=== PATIENT | male | born 1960 | race Caucasian/White ===

== ENCOUNTER 2016-11-26 16:20 | Emergency (ER) | payer OTHER ==
--- NOTE | 2016-11-26 19:45 | ED Physician Chart ---
Chief Complaint/HPI - Patient Information Date Seen:: 11/26/16 Time Seen:: 19:00 Chief Complaint:: FALL History of Present Illness:: THIS IS A 55 YO MALE WHO WAS SENT HERE FOR A CT SCAN OF THE HEAD BECAUSE OF A FALL EARLIER TODAY. THE PATIENT DENIES HITTING HIS HEAD OR FACE. HE DENIES LOC , CHEST PAIN, RIB PAIN, AND EXTREMITY PAIN. Allergies:: Allergies Allergy/AdvReac Type Severity Reaction Status Date / Time No Known Allergies Allergy Verified 11/26/16 16:36 Vitals:: Vital Signs - 8 hr 11/26/16 16:36 Temp 97.0 F HR 72 RR 17 BP 125/84 O2 Sat % 96 Historian:: Patient, Medical Records Review:: Nurse's Note Reviewed Review of Systems - Review of Systems General/Constitutional: No fever, No chills, No weight loss, No weakness, No diaphoresis, No edema, No loss of appetite Skin: No skin lesions, No rash, No bruising Head: No headache, No light-headedness Eyes: No loss of vision, No pain, No diplopia ENT: No earache, No nasal drainage, No sore throat, No tinnitus Neck: No neck pain, No swelling, No thyromegaly, No stiffness, No mass noted Cardio Vascular: No chest pain, No palpitations, No PND, No orthopnea, No edema Pulmonary: No SOB, No cough, No sputum, No wheezing GI: No nausea, No vomiting, No diarrhea, No pain, No melena, No hematochezia, No constipation, No hematemesis G/U: No dysuria, No frequency, No hematuria Musculoskeletal: No bone or joint pain, No back pain, No muscle pain Endocrine: No polyuria, No polydipsia Psychiatric: No prior psych history, No depression, No anxiety, No suicidal ideation Hematopoietic: No bruising, No lymphadenopathy Allergic/Immuno: No urticaria, No angioedema Neurological: No syncope, No focal symptoms, No weakness, No paresthesia, No headache, No seizure, No dizziness, No confusion, No vertigo Other: NO OVIOUS INJURIES Past Medical History - Past Medical History Obtainable: Yes Past Medical History: HTN, CAD, CVA/TIA Family History: Heart disease, Diabetes Melitus Social History: Non Smoker, No Alcohol, No Drug Use, Care Facility Surgical History: PEG/GTube Family Medical History - Family Member Mother History Unknown: Yes Physical Exam - Physical Examination General/Constitutional: Awake, Well-developed, well-nourished, Alert, No distress, GCS 15, Non-toxic appearing, Ambulatory Head: Atraumatic Other Head comments:: on examination of the head, no finding consistent with trauma. There were no swollen areas of the head and face. There are no open wound noted. Eyes: Lids, conjuctiva normal, PERRL, EOMI Skin: Nl inspection, No rash, No skin lesions, No ecchymosis, Well hydrated, No lymphadenopathy ENMT: External ears, nose nl, Nasal exam nl, Lips, teeth, gums nl Neck: Nontender, Full ROM w/o pain, No JVD, No nuchal rigidity, No bruit, No mass, No stridor Respiratory: Nl effort/Exclusion, Clear to Auscultation, No Wheeze/Rhonchi/Rales Cardio Vascular: RRR, No murmur, gallop, rubs, NL S1 S2 GI: No tenderness/rebounding/guarding, No organomegaly, No hernia, Normal BS's, Nondistended, No mass/bruits, No McBurney tenderness : No CVA tenderness Extremities: No tenderness or effusion, Full ROM, normal strength in all extremities, No edema, Normal digits & nails Neuro/Psych: Alert/oriented, DTR's symmetric, Normal sensory exam, Normal motor strength, Judgement/insight normal, Mood normal, Normal gait, No focal deficits Misc: normal gait, Normal back, No paraspinal tenderness Labs/Radiology/EKG Results - Lab Results Results: Laboratory Results - last 24 hr 11/26/16 11/26/16 11/26/16 20:11 20:11 20:11 WBC 8.0 RBC 4.65 Hgb 14.0 Hct 41.8 MCV 89.8 MCH 30.0 MCHC Differential 33.4 RDW 11.9 Plt Count 192 MPV 10.3 Neutrophils % 64.9 Lymphocytes % 22.2 Monocytes % 7.4 Eosinophils % 2.0 Basophils % 3.5 H Sodium 151 H Potassium 3.4 L Chloride 113 H Carbon Dioxide 32.1 H Anion Gap 9.3 BUN 33 H Creatinine 0.8 Est GFR ( Amer) > 60.0 Est GFR (Non-Af Amer) > 60.0 BUN/Creatinine Ratio 41.3 Glucose 99 Calcium 9.7 Total Bilirubin 0.8 AST 58 H ALT 119 H Alkaline Phosphatase 100 Troponin I < 0.01 L Total Protein 7.1 Albumin 3.4 L Globulin 3.7 Albumin/Globulin Ratio 0.9 L - Radiology Results Results: the patient refused x-rays and ct scan of the head. ED Septic Shock - . Is Septic Shock (SBP<90, OR Lactate>4 mmol\L) present?: No - <6hrs of presentation: Vital Signs: Vital Signs - 8 hr 11/26/16 16:36 Temp 97.0 F HR 72 RR 17 BP 125/84 O2 Sat % 96 ED Discharge Plan - Patient Disposition Admit/Discharge/Transfer: Social Insurance [facility]
[2016-11-26 20:23] LABS: % BASOPHILS 3.5 % (0.0-2.0); % LYMPHOCYTES 22.2 % (20.0-50.0); % MONOCYTES 7.4 % (2.0-10.0); % NEUTROPHILS 64.9 % (40.0-80.0); HEMATOCRIT 41.8 % (39.0-49.0); MEAN CELL VOLUME 89.8 fl (80-99); MEAN CORPUSCULAR HGB CONC 33.4 pg (28.0-36.0); MEAN PLATELET VOLUME 10.3 fl; NEUTROPHILE ABSOLUTE 5.1 Th/cmm (1.8-8.0); PLATELET COUNT 192 Th/cmm (150-400); RED BLOOD COUNT 4.65 Mil/cmm (4.30-5.70); RED CELL DISTRIBUTION WIDTH 11.9 % (11.5-20.0)
[2016-11-26 20:45] LABS: ALB/GLOB RATIO 0.9 (1.0-1.8); ALKALINE PHOSPHATASE 100 U/L (34-104); ANION GAP 9.3 (7.0-16.0); BILIRUBIN,TOTAL 0.8 mg/dL (0.3-1.0); BUN - UREA NITROGEN 33 mg/dL (7-25); BUN/CREATININE RATIO 41.3; CALCIUM SERUM 9.7 mg/dL (8.6-10.3); CARBON DIOXIDE 32.1 mEq/L (21.0-31.0); CHLORIDE 113 mEq/L (98-107); CREATININE - SERUM 0.8 mg/dL (0.7-1.3); GLUCOSE 99 mg/dL (70-105); POTASSIUM SERUM 3.4 mEq/L (3.5-5.1); SGOT 58 U/L (13-39); SGPT/ALT 119 U/L (7-52); SODIUM SERUM 151 mEq/L (136-145)
[2016-11-26 22:11] LABS: URINE COLOR AMBER; URINE GLUCOSE (UA) NEGATIVE (NEGATIVE)
[2016-11-26 22:12] LABS: URINE BILIRUBIN SMALL (NEGATIVE); URINE BLOOD TRACE (NEGATIVE); URINE KETONE NEGATIVE (NEGATIVE); URINE PROTEIN 30 mg/dL (NEGATIVE); URINE UROBILINOGEN >=8.0 E.U./dL (0.2 - 1.0)
[2016-11-26 22:13] LABS: URINE BACTERIA NONE SEEN /hpf (NONE SEEN); URINE EPITHELIAL CELLS NONE SEEN /lpf (FEW); URINE RBC NONE SEEN /hpf (0-5); URINE WBC NONE SEEN /hpf (0-5)
== END 2016-11-26 23:33 ==
LOC: ER 16:20
DX: S09.90XA Unspecified injury of head, initial encounter (principal); I10 Essential (primary) hypertension; I25.10 Atherosclerotic heart disease of native coronary artery without angina pectoris; Z86.73 Personal history of transient ischemic attack (TIA), and cerebral infarction without residual deficits; Z93.1 Gastrostomy status; W19.XXXA Unspecified fall, initial encounter; Y93.89 Activity, other specified; Y92.89 Other specified places as the place of occurrence of the external cause; Y99.8 Other external cause status
CPT/HCPCS: 36415-UA; 80053-TC; 81001-TC; 84484-TC; 85025-TC; Z7502